=== PATIENT | male | born 1995 | race Caucasian/White ===

== ENCOUNTER 2017-04-29 03:57 | Emergency (ER) | payer BC ==
[~2017-04-29] VITALS: Ht 180.3 cm; Wt 78.0 kg
[2017-04-29 03:59] VITALS: BP 133/71; PULSE 76; RESP 18; TEMP 98.3; O2SAT 97
[2017-04-29] MEDS ORDERED: LIDOCAINE HCL 1% 50 ML VIAL INFIL ONE (04:30)
[2017-04-29] MEDS ORDERED: TETANUS/DIPHTHERIA TOXOID ADULT 0.5 ML VIAL IM ONE (04:30)
--- NOTE | 2017-04-29 05:23 | PD ---
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 He states that he was opening up boxes at home and accidentally cut his hand. He denies any numbness , tingling or weakness. He has not had a tetanus shot over 5 years. Pain is mild. [facility] Past Medical History Medical History: Denies Significant Hx Diminished Hearing: No Tetanus Vaccination: > 5 Years Past Surgical History Surgical History: No Previous Surgery Social History Alcohol Use: Yes (1X WEEKLY) Tobacco Use: Yes (CIGARS "EVERY COUPLE OF MONTHS") Substance Use: Yes (MARIJUANA) Allergies-Medications (Allergen,Severity, Reaction): Coded Allergies: No Known Allergies (Unverified , 04/29/17) Review of Systems Except as stated in HPI: all other systems reviewed are Neg Physical Exam Narrative GENERAL: This is a well-nourished, well-developed patient, in no apparent distress. SKIN: No rashes, ecchymoses or lesions. Warm and dry. HEAD: Atraumatic. Normocephalic. EYES: PERRL, EOMI, no discharge or injection. No scleral icterus. EARS: Clear NOSE: Nasal turbinates appear normal. THROAT: Mucosa pink and moist. Airway patent. NECK: Trachea midline. supple, moves head freely. LUNGS: Clear to auscultation. CV: Regular in rhythm. ABDOMEN: Soft nontender. EXT: No clubbing cyanosis or edema. Patient has a 12 cm laceration from the ulnar aspect of the palm to the radial aspect of the palm through the flexor crease. The laceration goes through the subcutaneous change tissues but does not involve any tendon, muscle or nerve. Is able to fully extend his fingers or closing freely. Data Data Last Documented VS Vital Signs Date Time Temp Pulse Resp B/P Pulse Ox O2 Delivery O2 Flow Rate FiO2 04/29/17 03:59 98.3 76 18 133/71 97 Room Air Orders Tetanus/Diphtheria Tox Adult (Tetanus/Di (04/29/17 04:30) Lidocaine 1% Inj (50 Ml) (Xylocaine 1% I (04/29/17 04:30) [facility] Medical Decision Making Medical Screen Exam Complete: Yes Emergency Medical Condition: Yes Medical Record Reviewed: Yes Differential Diagnosis MDM: High Differential diagnoses: Fracture, sprain, strain, dislocation, contusion, neurovascular injury Narrative Course Patient's laceration is closed with sutures. Tetanus in position updated. Procedures Procedure Narrative LACERATION LOCATION: Left palm LENGTH: 12 cm NUMBER OF STITCHES/JOSE: 26 REPAIR: The area of the laceration was prepped with Betadine and sterilely draped. The laceration was infiltrated with 1% lidocaine. The wound was copiously irrigated and explored without evidence of foreign body, tendon injury or neurovascular injury. The wound was closed using 5-0 proline. This was a simple single layer repair. A sterile dressing was applied. The patient was advised to keep the dressing clean and dry. Patient tolerated the procedure well. Diagnosis Primary Impression: Laceration of superficial palmar arch of left hand, initial encounter Patient Instructions: General Instructions Departure Forms: Tests/Procedures, Work Release Special Instructions: No use of the left hand at work 1 week. Additional Instructions: Rest. Elevation. Daily wound care with soap, water, Neosporin. Tylenol or Advil for pain. Sutures out in 14 days. Return to the ER if any problems. Med/Other Pt SpecificInfo: Wound Care Disposition: 01 DISCHARGE HOME Condition: Stable Chace Chew Apr 29, 2017 05:23
== END 2017-04-29 06:01 | disposition home or self-care (01) ==
LOC: NEPD 03:57
DX: S61.412A Laceration without foreign body of left hand, initial encounter (principal); W26.8XXA Contact with other sharp object(s), not elsewhere classified, initial encounter; Z23 Encounter for immunization
CPT/HCPCS: 12004; 90471; 90714

== ENCOUNTER 2017-05-13 14:35 | Emergency (ER) | payer BC ==
[~2017-05-13] VITALS: Ht 177.8 cm; Wt 75.0 kg
[2017-05-13 14:36] VITALS: BP 137/77; PULSE 81; RESP 20; TEMP 97.8; O2SAT 98
--- NOTE | 2017-05-13 14:49 | PD ---
HPI . here for suture removal Chief Complaint: Wound/Suture/Staple Re-Check Time Seen by Provider: 14:40 Travel History International Travel<30 days: No Contact w/Intl Traveler<30days: No Traveled to known affect area: No History of Present Illness HPI 22 yr old male here for removal of sutures of his left palm. He was here and had 26 sutures placed. Upon initial examination I notice some wound dehiscence. Upon further questioning patient admits that he's been playing video games, driving and using his left hand. He has no complaints. He denies any pain. PFSH Past Medical History Diminished Hearing: No Social History Alcohol Use: Yes (1X WEEKLY) Tobacco Use: Yes (CIGARS "EVERY COUPLE OF MONTHS") Substance Use: Yes (MARIJUANA) Allergies-Medications (Allergen,Severity, Reaction): Coded Allergies: No Known Allergies (Unverified , 04/29/17) Reported Meds & Prescriptions Reported Meds & Active Scripts Active No Active Prescriptions or Reported Medications Review of Systems General / Constitutional: No: Fever Eyes: No: Visual changes HENT: No: Headaches Cardiovascular: No: Chest Pain or Discomfort Respiratory: No: Shortness of Breath Gastrointestinal: No: Abdominal Pain Genitourinary: No: Dysuria Musculoskeletal: No: Pain Skin: Positive Other (suture removal/wound dehiscence), No Rash Neurologic: No: Weakness Psychiatric: No: Depression Endocrine: No: Polydipsia Hematologic/Lymphatic: No: Easy Bruising Physical Exam Narrative GENERAL: AAO x 3, no acute distress, Well-nourished, well-developed patient. SKIN: Warm and dry. No visible rashes or bruising. left hand with [address]; there is obvious wound dehiscence in the middle extending about 7 sutures long. No evidence of infection HEAD: Normocephalic and atraumatic. EYES: No scleral icterus. No injection or drainage. ENT: No nasal drainage noted. Mucous membranes pink. Airway patent. NECK: Supple, trachea midline. No JVD. CARDIOVASCULAR: Regular rate and rhythm without murmurs, gallops, or rubs. RESPIRATORY: Breath sounds equal bilaterally. No accessory muscle use. No rhonchi or rales. GASTROINTESTINAL: visual inspection normal EXTREMITIES: No cyanosis or edema. BACK: No obvious deformity. NEURO: CN II-12 intact, watchstander strength normal b/l, UE and LE 5/5, no focal deficits PSYCH: AAO x 3, normal affect. Data Data Last Documented VS Vital Signs Date Time Temp Pulse Resp B/P Pulse Ox O2 Delivery O2 Flow Rate FiO2 05/13/17 14:36 97.8 81 20 137/77 98 Room Air MDM Medical Decision Making Medical Screen Exam Complete: Yes Emergency Medical Condition: Yes Medical Record Reviewed: Yes Differential Diagnosis Suture removal, wound dehiscence, poor wound healing Narrative Course 22-year-old male here for suture removal to his left palm. There is obvious wound dehiscence on examination. We had a discussion and this was related to overuse of his hand. Sutures were removed without incident. I did use some Dermabond to secure some loose skin. I also placed Steri-Strips on top of that. I explained why this happened and what potential outcomes could be. I recommend consult with hand surgeon if he has any further issues. Patient tolerated without incident. I recommend keeping the hand dry for the next day. I advised limited moisture for the next 3 days. Recommend follow-up with primary care provider. Patient verbalized understanding of instructions, questions were answered, and thanked me for their care. I advised them if their condition worsens, please return to the nearest emergency room for further care. Procedures Procedure Narrative suture removal 26 sutures removed there is an area of wound dehiscence in the middle of the laceration, likely due to overuse of the hand area cleaned and steri strips placed and reinforced with dermabond advised to keep area clean for next few days Diagnosis Primary Impression: Wound dehiscence Patient Instructions: General Instructions Additional Instructions: Keep your hand free of moisture for the next day to 2 days. Scripts No Active Prescriptions or Reported Meds Disposition: 01 DISCHARGE HOME Ema Harris May 13, 2017 14:48
== END 2017-05-13 15:14 | disposition home or self-care (01) ==
LOC: NEPK 14:35
DX: Z48.02 Encounter for removal of sutures (principal); T81.33XA Disruption of traumatic injury wound repair, initial encounter
CPT/HCPCS: 12001